=== PATIENT | female | born 1980 | race Two or more races ===

== ENCOUNTER 2018-08-11 23:35 | Emergency (ER) | payer MEDICAID ==
[~2018-08-11] VITALS: Ht 167.6 cm; Wt 59.4 kg
--- NOTE | 2018-08-11 23:45 | NUR ---
PT BIBSELF FOR S/P FALL ON 08/07, REPORTS WORSE PAIN TODAY. PT AAXO4, RESPIRATIONS EVEN AND UNLABORED, NO SOB, PT ON MONITOR, VSS, PENDING ER PROVIDER REYNOLDAL
--- NOTE | 2018-08-12 00:20 | NUR ---
AT BEDSIDE FOR EVAL
[2018-08-12] MEDS ORDERED: HYDROCODONE/APAP 5/325MG 1 EACH TABLET PO ONE (00:30)
[2018-08-12] MEDS ORDERED: KETOROLAC TROMETHAMINE INJ 30 MG/ML VIAL IV ONE ×2 (00:30→02:30)
[2018-08-12] MEDS ORDERED: KETOROLAC TROMETHAMINE 15 MG/ML VIAL ONE ×2 (00:32→02:26)
[2018-08-12] MEDS ORDERED: HYDROCODONE/APAP 5/325MG 1 EACH TABLET ONE (00:32)
[2018-08-12 00:41] VITALS: BP 122/95
--- NOTE | 2018-08-12 00:43 | NUR ---
RADIOLOGY AT BEDSIDE FOR XRAY
--- NOTE | 2018-08-12 02:36 | NUR ---
IV removed. Catheter intact and site benign. Pressure and 4x4 applied to site. No bleeding noted.Patient discharged to home in stable condition. Written and verbal after care instructions given. Patient verbalizes understanding of instruction. PT AMBULATORY WITH STEADY GAIT ACCOMPANIED BY FRIEND.
== END 2018-08-12 02:38 | disposition home or self-care (01) ==
LOC: ER 23:37
DX: S20.212A Contusion of left front wall of thorax, initial encounter (principal); F17.200 Nicotine dependence, unspecified, uncomplicated; W01.0XXA Fall on same level from slipping, tripping and stumbling without subsequent striking against object, initial encounter; Y93.39 Activity, other involving climbing, rappelling and jumping off; Y92.89 Other specified places as the place of occurrence of the external cause; Y99.8 Other external cause status
CPT/HCPCS: 71045; 96374; 96376; 99283; A4606; J1885 ×2

== ENCOUNTER 2020-02-10 00:05 | Inpatient (IN) | payer MEDICAID ==
[~2020-02-10] VITALS: Ht 167.6 cm; Wt 58.8 kg
--- NOTE | 2020-02-10 00:19 | NUR ---
PATIENT CAME TO ER BED 16 C/O ABDOMINAL PAIN. PATIENT IS CRYING AND INCONSOLABLE. PATIENT STATES THAT SHE HAD A FEW DRINKS. UNABLE OBTAIN FURTHER INFORMATION FROM PATIENT. ALERT AND AWAKE. BREATHING EVENLY AND UNLABORED ON ROOM AIR. CONNECTED TO MONITOR.
--- NOTE | 2020-02-10 00:22 | NUR ---
BLOOD COLLECTED AND SENT TO LAB
[2020-02-10] MEDS ORDERED: MORPHINE SULFATE INJ 4 MG/ML DISP.SYRIN ONE ×2 (00:24→01:35)
[2020-02-10] MEDS ORDERED: ONDANSETRON HCL/PF 4 MG/2 ML VIAL ONE (00:24)
[2020-02-10 00:26] LABS: BASOPHILS % (AUTO) 0.2 % (0.0-2.0); EOSINOPHILS % (AUTO) 0.2 % (0.0-6.0); HEMATOCRIT 37 % (33-45); HEMOGLOBIN 12.4 g/dL (11.5-14.8); LYMPHOCYTES # (AUTO) 0.8 /CMM (0.8-4.8); LYMPHOCYTES % (AUTO) 4.1 % (20.0-44.0); MEAN CORPUSCULAR HGB CONC 33 g/dl (31.0-36.0); MEAN CORPUSCULAR VOLUME 89 fL (82-100); MONOCYTES # (AUTO) 0.7 /CMM (0.1-1.30); MONOCYTES % (AUTO) 3.6 % (2.0-12.0); NEUTROPHILS # (AUTO) 17.1 /CMM (1.8-8.9); NEUTROPHILS % (AUTO) 91.9 % (43.0-81.0); PLATELET COUNT (AUTO) 250 /CMM (150-450); RED BLOOD CELL COUNT(AUTO) 4.21 MIL/uL (4.0-5.2); WHITE BLOOD COUNT (AUTO) 18.6 K/uL (4.3-11.0)
[2020-02-10] MEDS ORDERED: MORPHINE SULFATE INJ 2 MG/ML DISP.SYRIN IV ONE ×2 (00:30→01:30)
[2020-02-10] MEDS ORDERED: ONDANSETRON HCL/PF 4 MG/2 ML VIAL IVP ONE (00:30)
[2020-02-10] MEDS ORDERED: IV NS 0.9% 1,000 ML BAG IV ONE (00:30)
[2020-02-10 00:35] LABS: CALCIUM, SERUM 8.9 mg/dL (8.5-10.1); CREATININE 0.6 mg/dL (0.6-1.3); POTASSIUM 3.6 mmol/L (3.5-5.1)
[2020-02-10 00:41] LABS: ALBUMIN 3.4 g/dL (3.4-5.0); BILIRUBIN,DIRECT 0.1 mg/dL (0.0-0.2); BILIRUBIN,TOTAL 0.5 mg/dL (0.2-1.0); TOTAL PROTEIN, SERUM 7.1 g/dL (6.4-8.2)
--- NOTE | 2020-02-10 00:55 | NUR ---
US AT BEDSIDE
--- NOTE | 2020-02-10 00:59 | NUR ---
PT REFUSING ULTRASOUND. MADE AWARE
--- NOTE | 2020-02-10 01:28 | NUR ---
PATIENT AMBULATED TO THE RESTROOM WITH ASSISTANCE, CURRENTLY PROVIDING URINE.
--- NOTE | 2020-02-10 01:29 | NUR ---
PT ASSISTED TO THE RESTROOM. PATIENT WAS GETTING UP FROM THE TOILET, NOTICED BLOODY SPECIMEN ON THE FLOOR. PRIOR TO SPECIMEN RECOVERED, PT ACCIDENTALY STEPPED ON SPECIMEN. NOTIFIED MD AND CONFIRMED IT WAS A FETUS. SPECIMEN SENT TO LAB.
--- NOTE | 2020-02-10 01:30 | NUR ---
PATIENT'S FETUS IS SENT TO PATHOLOGY IN 10% NEUTRAL BUFFERED FORMALIN.
[2020-02-10 01:56] LABS: APPEARANCE,URINE Cloudy (CLEAR); BILIRUBIN,URINE Negative (NEGATIVE); BLOOD, URINE Large Ery/uL (NEGATIVE); COLOR,URINE Red (YELLOW); KETONES,URINE Negative (NEGATIVE); LEUKOCYTE ESTERASE ,URINE Small (NEGATIVE); NITRITE, URINE Negative (NEGATIVE); PH,URINE 8.5 (5.0-8.0); PROTEIN,URINE >=300 mg/dl (NEGATIVE); UGLUCOSE 100 MG/DL mg/dL (NEGATIVE); UROBILINOGEN,URINE 0.2 EU/dL (0.2)
[2020-02-10 01:56] LABS: ALCOHOL, BLOOD < 3 mg/dL (0-0)
[2020-02-10 02:00] LABS: BACTERIA,URINE None seen /HPF (None Seen); RBC,URINE TOO NUMEROUS TO COUN /HPF (0-2); SQUAMOUS EPITHELIAL CELL,UR Few /HPF (None Seen)
--- NOTE | 2020-02-10 02:10 | NUR ---
ULTRASOUND AT BEDSIDE IN PROGRESS
--- NOTE | 2020-02-10 02:11 | NUR ---
DR. MOREIRA SPEAKING WITH DR. LEYVA
--- NOTE | 2020-02-10 02:21 | NUR ---
CALLED [facility], UNABLE TO ACCEPT TRANSFER AT THIS TIME
--- NOTE | 2020-02-10 02:25 | NUR ---
CALLED [facility], UNABLE TO ACCEPT TRANSFER AT THIS TIME
--- NOTE | 2020-02-10 02:28 | NUR ---
CALLED [facility], SPOKE WITH [facility] REGARDING POSSIBLE TRANSFER. PER [facility], ONLY ACCEPTING BURN AND TRAUMA PATIENTS AT THIS TIME
--- NOTE | 2020-02-10 02:30 | NUR ---
PATIENT IS RESTING. SHE IS EASILY AROUSABLE THROUGH VOICE AND VERBAL STIMULI. CONNECTED TO A BLADDER TIER. PATIENT IS BREATHING WITH CHEST RISING AND FALLING EVENLY. NO SOB. NOT IN ANY DISTRESS. CALL LIGHT WITHIN REACH. SIDE RAILS UP FOR SAFETY.
--- NOTE | 2020-02-10 02:34 | NUR ---
SPOKE WITH RAHEEL FROM [facility] TRANSFER LINE, UNABLE TO ACCEPT PATIENT AT THIS TIME
--- NOTE | 2020-02-10 02:39 | NUR ---
SPOKE WITH WERNER FROM [facility], UNABLE TO ACCEPT PATIENT AT THIS TIME
--- NOTE | 2020-02-10 02:46 | NUR ---
SPOKE WITH LAINE FROM [facility] TRANSFER LINE. WILL FAX CLINICAL INFORMATION PER REQUEST
--- NOTE | 2020-02-10 02:52 | NUR ---
called [facility] spoke to epi from [facility]. unable to accept pt d/t possible d&c
--- NOTE | 2020-02-10 02:57 | NUR ---
DR. MOREIRA SPEAKING WITH DR. LEYVA
--- NOTE | 2020-02-10 03:26 | NUR ---
DR. MOREIRA SPEAKING WITH DR. GUSMAN
[2020-02-10 04:25] VITALS: BP 117/81
--- NOTE | 2020-02-10 04:25 | NUR ---
MS UNDERWRITING ANALYST NOTES PATIENT ADMITTED FROM ER FOR INCOMPLETE . TRANSFERRED VIA GURNEY; PATIENT ABLE TO AMBULATE WITH STANDBY ASSIST; UNSTEADY GAIT. BLEEDING NOTED ON GOWN AND CHUCKS. PATIENT A/OX1-2; POOR HISTORIAN; MEDICAL HISTORY OBTAINED FROM CHART. STABLE ON RA; NO S/S OF ACUTE RESPIRATORY DISTRESS; BREATHING IS EVEN AND UNLABORED. NO C/O PAIN. IV PRESENT ON RIGHT AC, SIZE 18, INTACT & PATENT, HEP LOCKED. BELONGINGS REVIEWED. TERRITORY ACCOUNT EXECUTIVE NASEEM HATCH. NOTIFIED OF NEW ADMISSION; AWAITING ORDERS. SAFETY MEASURES IN PLACE AND PATIENT'S NEEDS MET. WILL CONTINUE TO MONITOR.
[2020-02-10] MEDS ORDERED: IV NS 0.9% 1,000 ML IV PRN (06:00)
[2020-02-10] MEDS ORDERED: ACETAMINOPHEN 650 MG/20.3 ML UDC NG PRN (06:00)
[2020-02-10] MEDS ORDERED: ACETAMINOPHEN 325 MG TABLET PO PRN (06:00)
[2020-02-10] MEDS ORDERED: Potassium Chloride 20 MEQ in IV D5/0.45 NACL 1,000 ML IV PRN (06:30)
[2020-02-10] MEDS ORDERED: LORAZEPAM INJ 2 MG/ML VIAL IV PRN (06:30)
[2020-02-10] MEDS ORDERED: ONDANSETRON HCL/PF 4 MG/2 ML VIAL IVP PRN (06:30)
[2020-02-10] MEDS ORDERED: ACETAMINOPHEN 650 MG/SUPP.RECT RC PRN (06:30)
--- NOTE | 2020-02-10 07:10 | NUR ---
MS RN OPENING NOTES RECEIVED PATIENT AWAKE IN BED AT THIS TIME. AOX1-2. NO SOB NOTED, NO S/S OF ANY ACUTE DISTRESS NOTED, NO C/O PAIN AT THIS TIME. RESPIRATIONS EVEN AND UNLABORED WITH EQUAL RISE AND FALL IN CHEST. PT NOTED WITH BLEEDING ON PADS, GOWN AND NEVAEH. CLEAN PAD AND GOWN PROVIDED. IV ACCESS ON RAC G#18, INTACT, PATENT AND FLUSHING WELL. SAFETY PRECAUTIONS IN PLACE. BED IN LOWEST LOCKED POSITION, SIDE RAILS UP, HOB ELEVATED, CALL LIGHT WITHIN REACH. WILL CONTINUE TO MONITOR
[2020-02-10 07:17] LABS: BASOPHILS % (AUTO) 0.1 % (0.0-2.0); HEMATOCRIT 35 % (33-45); HEMOGLOBIN 11.4 g/dL (11.5-14.8); LYMPHOCYTES # (AUTO) 0.6 /CMM (0.8-4.8); LYMPHOCYTES % (AUTO) 4.1 % (20.0-44.0); MEAN CORPUSCULAR HGB CONC 33 g/dl (31.0-36.0); MEAN CORPUSCULAR VOLUME 88 fL (82-100); MONOCYTES # (AUTO) 0.6 /CMM (0.1-1.30); MONOCYTES % (AUTO) 3.8 % (2.0-12.0); NEUTROPHILS # (AUTO) 13.8 /CMM (1.8-8.9); PLATELET COUNT (AUTO) 222 /CMM (150-450); RED BLOOD CELL COUNT(AUTO) 3.97 MIL/uL (4.0-5.2)
--- NOTE | 2020-02-10 07:58 | NUR ---
MS RN CLOSING NOTES PATIENT SLEEPING IN BED, EASY TO AWAKEN. A/OX1-2. ON RA. NO S/S OF ACUTE RESPIRATORY DISTRESS; BREATHING IS EVEN AND UNLABORED. PATIENT DENIES ANY PAIN, N/V. IV PRESENT ON RIGHT AC, SIZE 18, INTACT & PATENT, HEP LOCKED. PATIENT WEARING OB PADS FOR VAGINAL BLEEDING. SAFETY MEASURES IN PLACE AND PATIENT'S NEEDS MET. BED LOCKED, ALARM ON, SIDE RAILS X3, CALL LIGHT WITHIN REACH. ENDORSED TO DAY SHIFT NURSE PLAN OF CARE.
[2020-02-10] MEDS: CEFTRIAXONE 1 G in IV D5W 50 ML IV SCH (07:59)
[2020-02-10 08:00] VITALS: BP 109/64
[2020-02-10 08:01] LABS: CALCIUM, SERUM 7.9 mg/dL (8.5-10.1); CREATININE 0.6 mg/dL (0.6-1.3); POTASSIUM 3.5 mmol/L (3.5-5.1)
[2020-02-10 08:05] LABS: PHOSPHORUS 2.7 mg/dL (2.5-4.9)
[2020-02-10 08:09] LABS: MAGNESIUM 1.2 mg/dL (1.8-2.4)
[2020-02-10] MEDS: FAMOTIDINE/PF INJ 20 MG/2 ML VIAL IV SCH (08:55)
[2020-02-10] MEDS: Magnesium 1GM/D5W 100ML PREMIX 100 ML IV SCH ×4 (09:44→12:57)
--- NOTE | 2020-02-10 09:50 | NUR ---
CRITICAL LAB VALUE FOR MAGNESIUM OF 1.2 REPORTED BY MONSERRAT BROWNFIELD PROGRAM COORDINATOR AT 0809. REPORT READ BACK. DR JARA, DNP MADE AWARE. ORDERS RECEIVED AND CARRIED OUT. WILL CONTINUE TO MONITOR
[2020-02-10 16:00] VITALS: BP 119/91
[2020-02-10] MEDS ORDERED: OXYTOCIN 10 UNIT/ML ML IV ONE (16:00)
[2020-02-10] MEDS ORDERED: METHYLERGONOVINE MALEATE 0.2 MG/ML AMPUL IM ONE (16:00)
--- NOTE | 2020-02-10 16:00 | NUR ---
PATIENT CONSULTED BY DOCTOR MIGUELITO. RECEIVED ORDERS FOR 20UNIT PITOCIN IV ONCE, 0.2MG METHERGINE IM ONCE, 2G AMPICILLIN IV PIGGYBACK Q6H AND REGULAR DIET. ORDERS READ BACK AND CARRIED OUT, WILL CONTINUE TO MONITOR
--- NOTE | 2020-02-10 16:45 | NUR ---
patient complained og aching, pulling abd pain of 10/10. vs wnl. morphine 2mg iv q3hrs prn administered. will continue to monitor
[2020-02-10] MEDS: MORPHINE SULFATE INJ 2 MG/ML DISP.SYRIN IV PRN (16:55)
[2020-02-10] MEDS: AMPICILLIN SODIUM 2 GM in IV NS 0.9% 100 ML IV SCH ×2 (17:44→23:06)
--- NOTE | 2020-02-10 19:45 | NUR ---
MS RN OPENING NOTES RECEIVED PATIENT RESTING IN BED COMFORTABLY; A/OX1-2; BREATHING EVEN AND UNLABORED; NO SOB NOTED; PATIENT TOLERATING ROOM AIR WELL; L AC #18 INTACT AND PATENT, FLUSHING WELL; TOLERATING IVF WELL; NO S/S OF REDNESS OR INFILTRATION NOTED; PATIENT HAS 102.1F, COOLING MEASURES STARTED, WILL MONITOR; PATIENT ALSO COMPLAINT OF ABDOMINAL PAIN BUT UNDERSTANDS MORPHINE NOT DUE YET; SAFETY PRECAUTIONS IMPLEMENTED; BED LOCKED IN LOW POSITION; SIDE RAILSX2; CALL LIGHT WITHIN REACH; WILL CONT TO MONITOR
[2020-02-10 20:00] VITALS: BP 127/82
--- NOTE | 2020-02-10 21:01 | NUR ---
MS RN NOTES PATIENT TEMP STILL 102F; PATIENT REFUSING SUPPOSITORY; MD MADE AWARE; PER MD CHANGE TO PO AND KEEP SAME FREQUENCY; WILL INPUT ORDERS AND ADMINISTER TYLENOL PER MD ORDER; WILL CONT TO MONITOR PATIENT TEMP THROUGHOUT SHIFT
[2020-02-10] MEDS: ACETAMINOPHEN 325 MG TABLET PO PRN (21:15)
--- NOTE | 2020-02-11 01:46 | NUR ---
MS RN NOTES CURRENT TEMP 98.9F; WILL CONT TO MONITOR
[2020-02-11] MEDS: MORPHINE SULFATE INJ 2 MG/ML DISP.SYRIN IV PRN ×2 (04:08→08:12)
--- NOTE | 2020-02-11 04:08 | NUR ---
MS RN NOTES PATIENT COMPLAINT OF ABDOMINAL PAIN, 02/16; PATIENT REQUESTING PAIN MEDICATION; VITALS STABLE; A/OX2-3, ABLE TO MAKE NEEDS KNOWN; MORPHINE IVP ADMINISTERED PER MD ORDER; WILL CONT TO MONITOR
[2020-02-11] MEDS: AMPICILLIN SODIUM 2 GM in IV NS 0.9% 100 ML IV SCH (05:00)
[2020-02-11] MEDS: ACETAMINOPHEN 325 MG TABLET PO PRN (06:16)
--- NOTE | 2020-02-11 06:19 | NUR ---
MS MCPHERSON NOTES PATIENT TEMP 102.3F; CHARGE NURSE AWARE; ADMINISTERED TYLENOL PER MD ORDER; PATIENT NO LONGER WANTS COOLING MEASURES; WILL INFORM DAY SHIFT; Addendum: 02/11/20 at 0624 by ROSEMARY BALES RN MD YEUNG AWARE
--- NOTE | 2020-02-11 06:34 | NUR ---
MS RN CLOSING NOTES PATIENT RESTING IN BED COMFORTABLY; A/OX2-3; BREATHING EVEN AND UNLABORED; NO SOB NOTED; TOLERATING ROOM AIR WELL; R AC #18 INTACT AND PATENT, INFUSING POTASSIUM CHLORIDE 20MEQ D51/2NS @ 80ML/HR; TOLERATING IVF WELL; PATIENT TEMP 102.3F, TYLENOL ALREADY ADMINISTERED; AWARE, CHARGE NURSE AWARE, WILL INFORM DAY SHIFT; ALL NEEDS RENDERED; SAFETY PRECAUTION IMPLEMENTED; BED LOCKED IN LOW POSITION; SIDE RAILSX2; CALL LIGHT WITHIN REACH; WILL ENDORSE WANDA TO ONCOMING SHIFT Addendum: 02/11/20 at 0643 by ROSEMARY BALES RN PER MD, NO NEW ORDERS AT THIS TIME SINCE PATIENT IS RECEIVING IV ABX; WILL WAIT FOR PENDING URINE CX AND BLOOD CX; WILL INFORM DAY SHIFT
--- NOTE | 2020-02-11 07:53 | NUR ---
MS/RN Opening note Patient received from shift supervisor. Sleeping soundly, appears in no distress or discomfort. Safety measures in place, call light within reach, bed in low setting. Will continue to monitor and ensure safety.
[2020-02-11 08:00] VITALS: BP 103/70
[2020-02-11 08:02] VITALS: BP 103/70
[2020-02-11] MEDS: CEFTRIAXONE 1 G in IV D5W 50 ML IV SCH (08:11)
[2020-02-11] MEDS: FAMOTIDINE/PF INJ 20 MG/2 ML VIAL IV SCH (08:11)
[2020-02-11 08:20] LABS: BASOPHILS % (AUTO) 0.3 % (0.0-2.0); EOSINOPHILS % (AUTO) 0.1 % (0.0-6.0); HEMATOCRIT 34 % (33-45); HEMOGLOBIN 11.5 g/dL (11.5-14.8); LYMPHOCYTES # (AUTO) 0.6 /CMM (0.8-4.8); LYMPHOCYTES % (AUTO) 4.8 % (20.0-44.0); MEAN CORPUSCULAR HGB CONC 34 g/dl (31.0-36.0); MEAN CORPUSCULAR VOLUME 88 fL (82-100); MONOCYTES # (AUTO) 0.4 /CMM (0.1-1.30); MONOCYTES % (AUTO) 3.4 % (2.0-12.0); NEUTROPHILS % (AUTO) 91.4 % (43.0-81.0); PLATELET COUNT (AUTO) 205 /CMM (150-450); RED BLOOD CELL COUNT(AUTO) 3.85 MIL/uL (4.0-5.2)
[2020-02-11 08:29] LABS: CALCIUM, SERUM 6.6 mg/dL (8.5-10.1); CREATININE 0.6 mg/dL (0.6-1.3); MAGNESIUM 1.8 mg/dL (1.8-2.4)
--- NOTE | 2020-02-11 10:14 | NUR ---
MS/RN AMA Patient left AMA at 10a. Patient seen walking in hallway, dressed carrying balloons and hinton looking for elevators. Approached patient and asked if she needed help, stated that she had a family emergency and needed to leave straight away. Upon further questioning, informed that the person watching her children was leaving and therefore leaving the children alone at home by themselves, with youngest being 11 years old. Educated patient as to the importance of following up with her primary care doctor as soon as possible so they could arrange further follow up as needed to ensure that all products of conception had been passed. Stated that this has happened before and that she knew what to look out for. Heplock and name bands removed. Escorted to main lobby by nursing. Upon removing linens from bed, noted that patient had left blanket and dress jewelry in room. Went to look for patient, but no longer on hospital property. Belongings bagged and placed in dirty utility room.
--- NOTE | 2020-02-11 10:37 | NUR ---
Social service consult requested by MD for possible homelessness. Per MD notes, pt is 39-year-old female with history of substance abuse presented to the emergency department with complaints of abdominal pain that started a couple hours prior that was intermittent crampy type rated as moderate to severe. Patient denies being . During the evaluation of the emergency department the patient had vaginal bleeding. She was assisted up to the bathroom 1 of the well control instructor and had a contraction which subsequently expelled a 6 cm fetus. Products of conception were not expelled. She subsequently was admitted to the hospital for [facility] evaluation and treatment. MIXING AND DISPENSING SUPERVISOR conducted chart review and attempted to meet with the pt. However, SW was notified by pt's bedside RN Linda, that pt left AMA. MIXING AND DISPENSING SUPERVISOR updated ZEHRA Maxwell.
--- NOTE | 2020-02-11 12:13 | NUR ---
MS/RN Incident report Incident report filed, unique id - [id number]
== END 2020-02-11 10:00 | disposition left against medical advice (07) | DRG 564 ==
LOC: ER 00:05 → MED 03:59
PROVIDERS: ADMIT Nurse Practitioner Acute Care; ATTEND Nurse Practitioner Acute Care
DX: O03.33 Metabolic disorder following incomplete spontaneous abortion (principal); O03.39 Incomplete spontaneous abortion with other complications; E83.42 Hypomagnesemia; E87.1 Hypo-osmolality and hyponatremia; D72.829 Elevated white blood cell count, unspecified; F17.210 Nicotine dependence, cigarettes, uncomplicated; F15.129 Other stimulant abuse with intoxication, unspecified
CPT/HCPCS: 36415; 76856-TC; 80048-TC; 80076-TC; 80305; 81000-TC; 83605-TC; 83690-TC; 83735-TC; 84100-TC; 84702-TC; 85025-TC; 85610-TC; 85730-TC; 86850-TC; 87040-TC; 87081-TC; 87086-TC; 88307-TC; G0378; G0480; J0290; J0696; J2210; J2270; J2405; J2590; J3475; J3480; J3490; J7030; J7060